=== PATIENT | female | born 1965 | race Caucasian/White ===

== ENCOUNTER 2016-10-22 21:30 | Emergency (ER) | payer OTHER ==
[2016-10-22 21:43] VITALS: BP 158/65
[2016-10-22] MEDS ORDERED: Acetaminophen/HYDROcodone 325-5 MG Tab PO ONE (22:11)
[2016-10-22] MEDS ORDERED: Diphtheria,Pertussis(Acell),Tetanus Vaccine 0.5 ML SDV IM ONE (22:11)
--- NOTE | 2016-10-22 22:31 | EDM.PDOC ---
ED HPI GENERAL MEDICAL PROBLEM - General Chief Complaint: Lower Extremity Injury/Pain Stated Complaint: DROPPED A CASE OF MARTINA ON RIGHT FOOT Time Seen by Provider: 10/22/16 22:14 Source of Information: Reports: Patient History Limitations: Reports: No Limitations - History of Present Illness INITIAL COMMENTS - FREE TEXT/NARRATIVE: 50-year-old female presents for evaluation treatment of injury to the right foot. Patient reports injury occurred several hours prior to arrival ER at work. Patient reports she works at [employer]. Reports that a box of laminated martina fell off a shelf and onto her right foot. She is currently complaining of pain to toes 3, 4 and 5. Reports swelling to the fourth toe. Also reports pain across the top of her right distal foot. She has appreciated some bruising into the dorsal right toes. Reports significant pain. Patient has been icing the foot prior to arrival. Onset: Today Location: Reports: Lower Extremity, Right Right Feet Pain Score (Numeric/FACES): 6 - Related Data Allergies Allergy/AdvReac Type Severity Reaction Status Date / Time No Known Allergies Allergy Verified 10/22/16 21:36 Home Meds: Home Meds ALPRAZolam [Xanax] 1 mg PO BID PRN 10/22/16 [History] Hydrocodone/Acetaminophen [[place] 5-325] 1 tab PO Q4H PRN #7 tablet 10/22/16 [Rx] RABEprazole Sodium [Aciphex] 20 mg PO DAILY 10/22/16 [History] Past Medical History Gastrointestinal History: Reports: Other (See Below) Other Gastrointestinal History: perforated gastric ulcer with repair Genitourinary History: Reports: Renal Calculus Psychiatric History: Reports: Anxiety - Past Surgical History GI Surgical History: Reports: Cholecystectomy Social & Family History - Tobacco Use Smoking Status *Q: Current Every Day Smoker Years of Tobacco use: 30 Packs/Tins Daily: 0.5 - Recreational Drug Use Recreational Drug Use: No Review of Systems - Review of Systems Review Of Systems: See Below Musculoskeletal: Reports: Foot Pain (right distal dorsal foot and toes 3, 4 and 5) Skin: Reports: Bruising (dorsal and ventral right toes 3, 4 and 5), Wound ( superficial laceration to the distal, dorsal right 4th toe) Neurological: Denies: Numbness, Tingling ED EXAM, GENERAL - Physical Exam Exam: See Below Exam Limited By: No Limitations General Appearance: Alert, WD/WN, Mild Distress, Thin Respiratory/Chest: No Respiratory Distress Cardiovascular: Normal Peripheral Pulses Peripheral Pulses: 2+: Posterior Tibial (L), Posterior Tibial (R), Dorsalis Pedis (L), Dorsalis Pedis (R) Extremities: Normal Inspection, Normal Capillary Refill, Limited Range of Motion (refuses to wiggle toes due to pain), Other (significant tenderness to toes 3, 4 and 5 of the right foot and to the metatarsals 3, 4 and 5; significant swelling to right toe 4) Neurological: Alert, Oriented Psychiatric: Normal Affect, Normal Mood Skin Exam: Warm, Dry, Normal Color, Ecchymosis (dorsal and ventral right toes 3 , 4 and 5), Other (approximately 3mm in length superficial laceration to he right distal 4th toe) Course - Vital Signs Last Recorded V/S: Last Vital Signs Temp 36.2 C 10/22/16 21:37 Pulse 85 10/22/16 21:37 Resp 16 10/22/16 21:37 BP 158/65 H 10/22/16 21:37 Pulse Ox 100 10/22/16 21:37 - Orders/Labs/Meds Meds: Medications Discontinued Medications Generic Name Dose Route Start Last Admin Trade Name Annia PRN Reason Stop Dose Admin Hydrocodone Bitart/Acetaminophen 1 tab 10/22/16 22:11 10/22/16 22:24 [place] 325-5 Mg PO 10/22/16 22:12 1 tab ONETIME ONE Administration Diphtheria/Tetanus/Acell Pertussis 0.5 ml 10/22/16 22:11 10/22/16 22:24 Adacel IM 10/22/16 22:12 0.5 ml .ONCE ONE Administration - Radiology Interpretation Free Text/Narrative:: xray of the right foot reviewed by myself and Dr. Keane shows a fracture of the right 4th distal toe with minimal displacement - Re-Assessments/Exams Free Text/Narrative Re-Assessment/Exam: 10/22/16 23:00 I reviewed the xray results with the patient. I will have her follow-up with [facility]. surgical intervention is unlikely. She does not want to see orthopedics. Will bharti tap toes. Offered post op shoe which she declined. Medication given for pain. May return to work. Discharge instructions as documented. Departure - Departure Time of Disposition: 23:02 Disposition: Home, Self-Care 01 Condition: Good Clinical Impression: Toe fracture, right - Discharge Information Prescriptions: Hydrocodone/Acetaminophen [[place] 5-325] 1 tab PO Q4H PRN #7 tablet PRN Reason: Pain Instructions: Toe Fracture, [id number] Referrals: Tracy Atkinson, [place] [Primary Care Provider] - Dewey Olivera MD [Physician] - Forms: ED Department Discharge Additional Instructions: [facility] in the next 2 weeks for a recheck of you toe. Recommend Dr. Olivera. Call [phone] to schedule with him. OTC tylenol or ibuprofen as needed for pain. For pain not relieved by Tylenol or Motrin you may take [place] 1/2-1 tab every 4-6 hours as needed for severe pain. Do not drive or operate machinery within 12 hours of taking [place]. [place] can be habit-forming, I recommend you take as few of these as needed to control your pain. you were given medication the ER that can affect your ability to drive and operate machinery. Do not drive or operate machinery within 12 hours of taking prescription narcotic pain medication. Ice the foot and toe for 5 times a day for about 10 minutes. Bharti tape the toes. Wear shoes that provide adequate support and are comfortable. Wear shoes that have adequate protection. Please return to the ER if your symptoms change or worsen.
--- NOTE | 2016-10-23 08:24 | CR ---
Right foot: Three views of the right foot were obtained. Comparison: No prior study. Lucent line is identified within the distal phalanx of the fourth digit. This is suspicious for slightly displaced fracture if patient has no infectious symptoms. Nondisplaced fracture is felt to be present within the distal phalanx of the right fifth toe. No additional fracture or other abnormality is seen. Minimal plantar spur is present. Impression: 1. Slightly displaced fracture within the distal phalanx of the fourth toe and nondisplaced fracture within the distal phalanx of the fifth toe. Diagnostic code #3
== END 2016-10-22 23:15 | disposition home or self-care (01) ==
LOC: JD.ED 21:30
DX: S92.531A Displaced fracture of distal phalanx of right lesser toe(s), initial encounter for closed fracture (principal); S92.534A Nondisplaced fracture of distal phalanx of right lesser toe(s), initial encounter for closed fracture; Z23 Encounter for immunization; F17.210 Nicotine dependence, cigarettes, uncomplicated; F41.9 Anxiety disorder, unspecified; Z87.442 Personal history of urinary calculi; Z90.49 Acquired absence of other specified parts of digestive tract; Z79.899 Other long term (current) drug therapy; W20.8XXA Other cause of strike by thrown, projected or falling object, initial encounter
CPT/HCPCS: 73630; 90471; 90715; 99284; A9270